=== PATIENT | male | born 1950 | race Caucasian/White ===

== ENCOUNTER → 2017-04-05 | Outpatient (CLI) | payer MEDICARE ==
--- NOTE | 2017-04-05 10:06 | KCIC ---
EXAM: Cervical spine MRI without contrast. HISTORY: Right shoulder pain. TECHNIQUE: Multiplanar, multisequence magnetic resonance imaging of the cervical spine was performed without contrast. COMPARISON: None. FINDINGS: There is minimal anterolisthesis of C3 on C4. The vertebral bodies are normal in height. No suspicious osseous lesion is seen. There is mild degenerative endplate signal change, predominantly along the inferior endplate of C7. No spinal cord lesion is seen. The posterior fossa and skull base are unremarkable. There are few tiny dilated nerve root sheath cysts within the lower cervical extra foraminal spaces, an incidental finding. At C2-C3, there is mild left facet arthropathy. There is mild left foraminal stenosis. At C3-C4, there is a minimal disc bulge and endplate remodeling. There is mild left facet arthropathy. There is no stenosis. At C4-C5, there is a minimal disc bulge and endplate remodeling. There is mild bilateral facet arthropathy. There is no stenosis. At C5-C6, there is a right posterior lateral predominant disc bulge or shallow right foraminal to extraforaminal disc protrusion superimposed on endplate remodeling. There is mild right foraminal stenosis. At C6-C7, there is a disc bulge and endplate remodeling. There is no stenosis. IMPRESSION: 1. Minimal to mild degenerative change within the cervical spine, described in detail above. There is suspected mild right foraminal stenosis at C5-C6. 2. No acute finding. Electronically signed by: Angelica Tapia MD (04/05/2017 10:02 AM) [id number]
== END | disposition home or self-care (01) ==
LOC: KCIC MRI 08:59
PROVIDERS: ATTEND Orthopaedic Surgery
DX: M48.02 Spinal stenosis, cervical region (principal)
CPT/HCPCS: 72141